=== PATIENT | female | born 1960 | race Two or more races ===

== ENCOUNTER 2023-12-12 05:20 | Day surgery (SDC) | payer OTHER ==
[~2023-12-12 05:20] MED LIST: CLIMARA1 EACH; LEVOTHYROXINE25 MCG PO
[2023-12-12] MEDS ORDERED: CEFTRIAXONE SODIUM 2,000 MG VIAL ONE (07:18)
[2023-12-12] MEDS ORDERED: METRONIDAZOLE/SODIUM CHLORIDE 500 MG/100 ML PIGGYBACK IV ONE ×2 (07:18→08:15)
[2023-12-12] MEDS ORDERED: POVIDONE-IODINE 118 ML BOTT TOP ONE ×2 (07:41→08:15)
[2023-12-12] MEDS ORDERED: DIBUCAINE 30 GM TUBE ONE (07:41)
[2023-12-12] MEDS ORDERED: LIDOCAINE HCL 1%/EPINEPHRINE 50ML VIAL IJ ONE (07:41)
[2023-12-12] MEDS ORDERED: HEMOSTATIC MATRIX 1 KIT KIT TOP ONE ×2 (07:41→08:15)
[2023-12-12] MEDS ORDERED: LIDOCAINE HCL/EPINE 1%-Epi 30ML VIAL IJ ONE (08:15)
[2023-12-12] MEDS ORDERED: DIBUCAINE 30 GM TUBE RECTAL ONE (08:15)
[2023-12-12] MEDS ORDERED: CEFTRIAXONE SODIUM 2,000 MG VIAL IV ONE (08:15)
[2023-12-12] MEDS ORDERED: BUPIVACAINE HCL 30 ML VIAL IJ ONE (08:30)
== END 2023-12-12 14:20 | disposition home or self-care (01) ==
LOC: CIR.AMB 05:20
PROVIDERS: ATTEND Colon & Rectal Surgery
DX: K64.2 Third degree hemorrhoids (principal); K64.4 Residual hemorrhoidal skin tags; K64.8 Other hemorrhoids